=== PATIENT | female | born 1970 | race Two or more races ===

== ENCOUNTER 2019-03-19 09:11 | Emergency (ER) | payer OTHER ==
[~2019-03-19] VITALS: Ht 172.7 cm; Wt 64.0 kg
[~2019-03-19 09:11] MED LIST: ADVIL100 MG; LEVAQUIN500 MG; PERCOCET 5/3251 TAB PO; PROVENTIL HFA6.7 GM
== END 2019-03-19 10:52 | disposition home or self-care (01) ==
LOC: ER 09:11
DX: L03.116 Cellulitis of left lower limb (principal); S81.822S Laceration with foreign body, left lower leg, sequela; W45.8XXS Other foreign body or object entering through skin, sequela

== ENCOUNTER 2019-06-27 19:20 | Emergency (ER) | payer OTHER ==
[~2019-06-27] VITALS: Ht 172.7 cm; Wt 61.2 kg
[2019-06-27] MEDS ORDERED: VOLTAREN-XR100 MG PO (23:06)
[2019-06-27] MEDS ORDERED: CYCLOBENZAPRINE10 MG PO (23:06)
[2019-06-27] MEDS ORDERED: PERCOCET 7.5-31 EACH PO (23:06)
[2019-06-27] MEDS ORDERED: ORPHENADRINE C100 MG PO (23:06)
== END 2019-06-28 00:44 | disposition home or self-care (01) ==
LOC: ER 19:20
DX: M62.830 Muscle spasm of back (principal); M54.5 Low back pain

== ENCOUNTER 2019-11-21 13:45 | Emergency (ER) | payer OTHER ==
[~2019-11-21] VITALS: Ht 170.2 cm; Wt 61.2 kg
[~2019-11-21 13:45] MED LIST changes: +CYCLOBENZAPRINE10 MG PO; +ORPHENADRINE C100 MG PO; +PERCOCET 7.5-31 EACH PO; +VOLTAREN-XR100 MG PO
== END 2019-11-21 18:12 | disposition home or self-care (01) ==
LOC: ER 13:45
DX: R07.89 Other chest pain (principal)